=== PATIENT | female | born 1955 | race Two or more races ===

== ENCOUNTER → 2024-06-21 | Outpatient (CLI) | payer MEDICAID, SELFPAY ==
--- NOTE | 2024-06-21 11:30 | XR_ITS ---
Examination: Ultrasound soft tissue upper back TECHNIQUE: By resolution grayscale sonographic images soft tissue upper right back Exam date and time: June 21, 2024 1126 hours INDICATIONS: Palpable lump upper right back beginning 2 months ago FINDINGS: Hyperechoic mass in the soft tissue upper right back at the area concern 4.3 x 1.0 x 3.7 cm IMPRESSION: Probable lipoma in the soft tissue upper right back at the area concern, 3-6 month follow-up ultrasound soft tissue recommended
== END | disposition home or self-care (01) ==
PROVIDERS: PCP Physician Assistant; Referring Provider Physician Assistant; Visit Provider Physician Assistant
DX: R22.9 Localized swelling, mass and lump, unspecified (principal)
CPT/HCPCS: 76604

== ENCOUNTER 2024-10-01 13:19 | Emergency (ER) | payer MEDICAID, SELFPAY ==
[2024-10-01] VITALS (7 sets, daily range): BP systolic 120–163; BP diastolic 75–98; PULSE 88–115; RESP 14–98; TEMP 37.3–38.8; O2SAT 96–99; BMI 23.5
--- NOTE | 2024-10-01 13:39 | EKG_ITS ---
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
--- NOTE | 2024-10-01 13:40 | XR_ITS ---
Examination: PA chest single view Technique: Upright PA chest single view Exam date and time: October 01, 2024 1351 hrs. Comparison March 13, 2024 Indications: Sepsis protocol, right upper abdominal pain beginning 5 days ago. Findings: Normal heart size No lobar pneumonia or pulmonary edema Moderate osteopenia Impression: No lobar pneumonia identified
--- NOTE | 2024-10-01 13:42 | PD.EDADULT ---
ED General RME/HPI General Chief complaint: Abdominal Pain Stated complaint: PAIN ON ABD RUQ STARTED WEDNESDAY Time Seen by Provider: 10/01/24 13:39 Arrival date/time: 10/01/24 13:19 CC: The right upper quadrant abdominal pain and fever HPI ongoing for the past 4 days worse in the last 24. Similar events years ago and is unable to say who her primary care doctor is denies cough shortness of breath or chest pain states that with deep breathing she elicits the pain in the right upper quadrant denies painful urination bloody urination diarrhea nausea or vomiting. Local pain is 6-8 on a 10 scale, patient noted to be febrile sepsis initiated Related Data Allergies Allergy/AdvReac Type Severity Reaction Status Date / Time ibuprofen Allergy Verified 10/01/24 13:27 Review of Systems Review of Systems Narrative Review of Systems: GEN: + fever, no chills, no weight loss EYES: No discharge, no visual changes, no pain HEENT: No ear pain, no congestion, no sore throat PULM: No shortness of breath, no cough, no congestion CV: No chest pain, no dyspnea on exertion, no palpitations GI: No nausea, no vomiting, no diarrhea, right upper quadrant abdominal pain, no constipation : No frequency, no urgency, no dysuria MUSC/SKEL: No joint pain, no back pain SKIN: No rash PSYCH: No hallucinations, no depression HEME/LYMPH: No easy bleeding or bruising tendencies NEURO: No weakness, no headache Past Medical History Social History SMOKING STATUS: Never smoker ED Exam Narrative Physical exam: [General: Petite but not emaciated, in mild discomfort but not in any acute distress Head normocephalic HEENT: Within acceptable limits Neck is supple nontender Chest equal chest rise nontender to palpation Respiratory: Clear to auscultation no wheezes crackles or rubs CV: Rate rhythm is regular no murmurs rubs or clicks Abdomen is flat, mild right upper quadrant tenderness with palpation no reflexive guarding no rebound tenderness no epigastric or left upper quadrant and no lower quadrant pain with palpation. Back: No CVA tenderness no spinous process tenderness from cervical spine thoracic and lumbar spine Skin: Intact no petechiae rash induration ulceration or crepitus Extremities: Moving all extremity against resistance cap refill less than 2 seconds neurosensory intact Neuro: Awake alert oriented x3 Glascow coma 15 no focal deficits] Course Quality Measures none Orders Category Date Time Status Bedside COVID-19 Antigen Test NOW Care 10/01/24 13:39 Active Bedside Influenza A&B Antigen Test NOW Care 10/01/24 13:40 Completed Manager Medical Device STAT Care 10/01/24 13:39 Active Continuous Pulse Oximetry STAT Care 10/01/24 13:39 Completed EKG (ED ONLY) *Do not use* NOW Care 10/01/24 13:39 Completed In and Out Catheter X1PRN Care 10/01/24 13:39 Active Insert IV NOW Care 10/01/24 13:39 Active NPO STAT Care 10/01/24 13:39 Active Strict Intake and Output Routine Care 10/01/24 13:[address] abdomen pelvis wo con Stat Exams 10/01/24 16:23 Completed EKG (ED Only) Stat Exams 10/01/24 13:39 Draft XR chest 1V SEPSIS PROTOCOL Stat Exams 10/01/24 13:40 Taken B-Type Natriuretic Peptide Stat Lab 10/01/24 13:50 Completed Blood Culture (Lab) Stat Lab 10/01/24 13:50 Received CBC Stat Lab 10/01/24 13:50 Completed Comprehensive Metabolic Panel Stat Lab 10/01/24 13:50 Completed LDH (Lactate Dehydrogenase) Stat Lab 10/01/24 13:50 Completed Lactate (Lactic Acid) Stat Lab 10/01/24 13:50 Completed Lipase Stat Lab 10/01/24 13:50 Completed Lipid Panel Stat Lab 10/01/24 13:50 Completed Magnesium Stat Lab 10/01/24 13:50 Completed Partial Thromboplastin Time Stat Lab 10/01/24 13:50 Completed Phosphorous Stat Lab 10/01/24 13:50 Completed Procalcitonin Stat Lab 10/01/24 13:50 Completed Prothrombin Time with INR Stat Lab 10/01/24 13:50 Completed Troponin I Stat Lab 10/01/24 13:50 Completed Urinalysis Stat Lab 10/01/24 14:39 Completed Urine Culture Stat Lab 10/01/24 14:39 Received Acetaminophen Tab [Tylenol Tab] Med 10/01/24 16:24 Discontinued 650 mg PO X1 ONE Morphine Inj Med 10/01/24 16:24 Discontinued 4 mg IVP X1 ONE Ondansetron Inj [Zofran Inj] Med 10/01/24 16:24 Discontinued 4 mg IV X1 ONE Oxygen Delivery NOW RT 10/01/24 13:39 Active Vital Signs Vital signs: Vital Signs Temperature 100.5 F H 10/01/24 13:32 Pulse Rate 115 H 10/01/24 13:32 Respiratory Rate 20 10/01/24 13:32 Blood Pressure 137/92 H 10/01/24 13:32 Pulse Oximetry (%) 96 10/01/24 13:32 Oxygen Delivery Method Room Air 10/01/24 13:32 [facility] Patient data External records reviewed:: [facility] previous records Clinical information provided by:: patient and family Social determinants that could affect healthcare access:: none Patient has the following chronic illnesses:: Review the medical record show no prior visits to this facility. How is presenting disease/condition affected by chronic disease/condition?: uneffected by Evaluation data The following diagnostics were reviewed and interpreted by me:: lab results, radiology exam(s) and EKG tracing(s) Lab and/or radiology exams considered but not ordered:: CBC shows a mild leukocytosis of 15.9 no anemia thrombocytopenia Coags within acceptable limits Chemistry shows sodium 135 no other significant electrolyte imbalances no renal impairment total bilirubin at 2.99 no transaminitis. Lactic acid of 1.9 Troponin is negative Troponin BNP is negative Procalcitonin is negative CT of the abdomen shows the patient has no gallbladder, no CBD dilatation no other acute finding requires emergent or immediate intervention. Interpretation Summary: Patient has no acute finding other than elevated T. bili and fever. I suspect the patient has a virus however I do not know if the T. bili elevation is chronic or not as I have no prior laboratory results to compare to. Patient will be now be discharged home to follow-up with primary care provider daughter at bedside was advised if there is worsening of symptoms return the emergency room immediately for further evaluation. Medications Medications considered but not ordered:: None Medication administrations:: Medication Administration History Discontinued Medications Acetaminophen (Acetaminophen 325 Mg Tablet) 650 mg PO X1 ONE Stop: 10/01/24 16:25 Last Admin: 10/01/24 16:33 Dose: 650 mg Documented By: TM Morphine Sulfate (Morphine Sulf Inj 10 Mg/Ml Vial) 4 mg IVP X1 ONE Stop: 10/01/24 16:25 Last Admin: 10/01/24 16:34 Dose: 4 mg Documented By: TM Ondansetron HCl (Ondansetron Inj 2 Mg/Ml Inj 2 Ml) 4 mg IV X1 ONE; Protocol Stop: 10/01/24 16:25 Last Admin: 10/01/24 16:34 Dose: 4 mg Documented By: TM None Consultations Consultation(s) initiated? (list below): No Diagnosis Differential Diagnosis ED Complaint MDM: Gastritis choledocholithiasis viral syndrome Most likely diagnosis given after review of the tests above:: Viral syndrome fever Admission Indicated Admission indicated?: not indicated Explain why admission is indicated or not indicated:: Stable Admission Request Was there a request for admission?: No Disposition Plan Disposition Plan: Discharge Discharge Attestation Discharge Attestation: The patient and all family members were given an opportunity to ask questions and understood the discharge instructions. Discharge instructions specifically effects, indications for sooner follow up or return to the emergency department, and the expected course of current diagnosis. Patient condition: Stable Medical Decision Making Differential Diagnosis Differential Diagnosis: Gastritis choledocholithiasis viral syndrome Lab Data 10/01/24 13:50 10/01/24 13:50 Labs: Lab Results 10/01/24 10/01/24 Range/Units 13:50 14:39 WBC 15.9 H (3.6-11.0) Thou/mm3 RBC 4.54 (4.00-5.20) Miln/mm3 Hgb 13.6 (12.0-16.0) g/dL Hct 41.0 (36.0-46.0) % MCV 90 (80-100) fL MCH 30.0 (25.0-35.0) pg MCHC 33.2 (31.0-37.0) g/dl RDW Std Deviation 42.6 (36.4-46.3) fL Plt Count 323 (140-440) Thou/mm3 Neut % (Auto) 75 (37-80) % Lymph % (Auto) 15 (10-50) % [place] % (Auto) 9 (0-12) % Eos % (Auto) 0 (0-10) % Baso % (Auto) 0 (0-2.5) % Neut # (Auto) 11.9 H (1.8-7.7) Thou/mm3 Lymph # (Auto) 2.5 (1.0-4.8) Thou/mm3 [place] # (Auto) 1.4 H (0.0-0.8) Thou/mm3 Eos # (Auto) 0.0 (0.0-0.5) Thou/mm3 Baso # (Auto) 0.1 (0.0-0.2) Thou/mm3 Immature Gran # (Auto) 0.06 H (0.00-0.00) Thou/mm3 Absolute Nucleated RBC 0.00 (0.00-0.00) Thou/mm3 Immature Gran % 0 (0-0) % Nucleated RBC % 0 (0) /100 WBC PT 11.6 (9.0-12.2) Seconds INR 1.1 (0.9-1.3) APTT 29.0 (22.0-36.0) Seconds Sodium 135 L (136-145) mMol/L Potassium 4.2 (3.4-5.1) mMol/L Chloride 100 (98-107) mMol/L Carbon Dioxide 25.3 (20.0-31.0) mMol/L Anion Gap 10 (7-16) BUN 19 (9-23) mg/dL Creatinine 0.9 (0.6-1.3) mg/dL Estim Creat Clear Calc 42.6 L (>60) mL/min eGFR > 60 (60 - ) See Note BUN/Creatinine Ratio 21 H (12-20) Ratio Glucose 112 H (74-106) mg/dL Calculated Osmolality 273 L (275-295) Lactic Acid 1.9 (0.4-2.0) mMol/L Calcium 10.5 (8.3-10.6) mg/dL Corrected Calcium 10.5 H (8.5-10.1) mg/dL Phosphorus 3.6 (2.4-5.1) mg/dL Magnesium 2.2 (1.6-2.6) mg/dL Total Bilirubin 2.9 H (0.3-1.2) mg/dL AST 22 (0-34) U/L ALT 18 (10-49) U/L Alkaline Phosphatase 82 (46-116) U/L Lactate Dehydrogenase 167 (120-246) U/L Troponin I < 0.020 (0.0-0.045) ng/mL B-Natriuretic Peptide < 20 (0-100) pg/mL Total Protein 8.5 H (5.7-8.2) gm/dL Albumin 5.1 H (3.4-4.8) gm/dL Globulin 3.4 (2.3-3.5) gm/dL Albumin/Globulin Ratio 1.5 (1.2-2.2) Triglycerides 91 (30-150) mg/dL Cholesterol 157 (132-200) mg/dL LDL Cholesterol, Calc 81 (0-130) mg/dL HDL Cholesterol 58 (40-60) mg/dL Cholesterol/HDL Ratio 2.7 L (3.7-5.6) RATIO Lipase 27 (12-53) U/L Procalcitonin 0.28 (0.0-0.49) ng/ml Ur Collection Type Clean Catch Urine Color Yellow (Lt Yel-Yel) Urine Clarity Turbid A (Clear/Hazy) Urine pH 6.0 (5.0-7.0) Ur Specific [place] 1.030 (1.001-1.035) Urine Protein 2+ A (Neg - Trace) Urine Glucose (UA) Negative (Negative) Urine Ketones 2+ A (Negative) Urine Blood Negative (Negative) Urine Nitrite Negative (Negative) Urine Bilirubin Negative (Negative) Urine Urobilinogen (Auto) 8.0 (0.0-1.0) mg/dL Ur Leukocyte Esterase Positive (Negative) Urine RBC 11 H (0-3) /hpf Urine WBC 12 H (0-5) /hpf Ur Squamous Epith Cells 4 (0-5) /hpf Urine Bacteria Rare (None) Hyaline Casts < 1 (0-1) /hpf Discharge Plan Plan Patient Disposition: HOME (Self Care) Patient condition on transfer: Stable Prescriptions/Referrals Referrals: Christofer rBiggs MD [Physician] - In 1 week No Primary/Family,Physician [Primary Care Provider] - In 1 week Problem List Clinical Impression: Abdominal pain, Fever Patient/Caregiver Discharge Instructions Other Activity Instructions:: Give Tylenol for pain. If there is a worsening of symptoms return the emergency room for reevaluation. Education Materials: Abdominal Pain Additional Instructions: Take the medications as prescribed if there is a worsening of symptoms in spite of the medications return the emergency room for reevaluation otherwise follow-up with your primary care provider. Print Language: Upper Sorbian Stand Alone Forms: Sharyn Award Info., Work/School Release, Patient Portal Info Letter PITER/SOPHIE Supervising Physician PITER/SOPHIE Supervising Physician: Brett Dickson ENP
[2024-10-01 14:05] LABS: Lactate (Lactic Acid) 1.9 mMol/L (0.4-2.0)
[2024-10-01 14:06] LABS: Basophils # (Auto) 0.1 Thou/mm3 (0.0-0.2); Basophils % (Auto) 0 % (0-2.5); Eosinophils % (Auto) 0 % (0-10); Hemoglobin 13.6 g/dL (12.0-16.0); Immature Granulocytes % (Auto) 0 % (0-0); Immature Granulocytes Auto 0.06 Thou/mm3 (0.00-0.00); Lymphocytes # (Auto) 2.5 Thou/mm3 (1.0-4.8); Lymphocytes % (Auto) 15 % (10-50); Mean Corpuscular HGB Conc 33.2 g/dl (31.0-37.0); Mean Corpuscular Volume 90 fL (80-100); Monocytes # (Auto) 1.4 Thou/mm3 (0.0-0.8); Monocytes % (Auto) 9 % (0-12); Neutrophils # (Auto) 11.9 Thou/mm3 (1.8-7.7); Neutrophils % (Auto) 75 % (37-80); Nucleated Red Blood Cell % 0 /100 WBC (0); Platelet Count 323 Thou/mm3 (140-440); RDW Standard Deviation 42.6 fL (36.4-46.3); Red Blood Count 4.54 Miln/mm3 (4.00-5.20); White Blood Count 15.9 Thou/mm3 (3.6-11.0)
[2024-10-01 14:25] LABS: INR 1.1 (0.9-1.3); Prothrombin Time 11.6 Seconds (9.0-12.2)
[2024-10-01 14:28] LABS: B-Type Natriuretic Peptide < 20 pg/mL (0-100)
[2024-10-01 14:36] LABS: Alanine Aminotransferase 18 U/L (10-49); Albumin, Serum 5.1 gm/dL (3.4-4.8); Albumin/Globulin Ratio 1.5 (1.2-2.2); Alkaline Phosphatase 82 U/L (46-116); Anion Gap 10 (7-16); Aspartate Amino Transferase 22 U/L (0-34); BUN/Creatinine Ratio 21 Ratio (12-20); Bilirubin,Total 2.9 mg/dL (0.3-1.2); Blood Urea Nitrogen 19 mg/dL (9-23); Calcium 10.5 mg/dL (8.3-10.6); Calcium (Corrected) 10.5 mg/dL (8.5-10.1); Carbon Dioxide 25.3 mMol/L (20.0-31.0); Chloride 100 mMol/L (98-107); Creatinine (Component) 0.9 mg/dL (0.6-1.3); Estimated Creatinine Clearance 42.6 mL/min (>60); Globulin 3.4 gm/dL (2.3-3.5); Glucose 112 mg/dL (74-106); LDH (Lactate Dehydrogenase) 167 U/L (120-246); Lipase 27 U/L (12-53); Magnesium 2.2 mg/dL (1.6-2.6); Osmolality,Calculated 273 (275-295); Phosphorous 3.6 mg/dL (2.4-5.1); Potassium 4.2 mMol/L (3.4-5.1); Procalcitonin 0.28 ng/ml (0.0-0.49); Sodium 135 mMol/L (136-145); Total Protein 8.5 gm/dL (5.7-8.2); Troponin I < 0.020 ng/mL (0.0-0.045); eGFR > 60 See Note
[2024-10-01 14:55] LABS: Collection Type, Urine Clean Catch
[2024-10-01 15:07] LABS: Bacteria,Urine Rare; Bilirubin,Urine Negative (Negative); Blood,Urine Negative (Negative); Clarity,Urine Turbid (Clear/Hazy); Color,Urine Yellow (Lt Yel-Yel); Glucose, Urine Negative (Negative); Hyaline Casts,Urine < 1 /hpf (0-1); Ketones,Urine 2+ (Negative); Leukocyte Esterase,Urine Positive (Negative); Nitrite,Urine Negative (Negative); Protein,Urine 2+ (Neg - Trace); RBC,Urine 11 /hpf (0-3); Squamous Epithelial Cell,Urine 4 /hpf (0-5); WBC,Urine 12 /hpf (0-5)
--- NOTE | 2024-10-01 16:00 | PC.NURSE ---
PT COMES FROM HOME W/ABDOMINAL PAIN THAT SHE HAS HAD FOR A FEW DAYS THAT IS GETTING WORSE. SHE THOUGHT IT WAS HER SCIATICA BUT NOW GETS IN EXTREME PAIN ANYTIME SHE MOVES. PT CONNECTED TO TELE, FAMILY AT BEDSIDE ATTENTIVE TO PT, CALL [facility] IN REACH.
--- NOTE | 2024-10-01 16:23 | XR_ITS ---
Examination: CT abdomen and pelvis without contrast. Coronal 3-D reconstructions. Sagittal 2-D reconstructions. Date and time of exam:October 01, 2024 1647 hrs. Indications: Right upper abdominal pain beginning 5 days ago CTDI: vol (mGy): 01/19/2021 DLP: (mGycm): 279 Technique: Axial images of the abdomen have been obtained, 3 mm slice thickness Intravenous contrast material has not been administered. Low dose protocols were performed. One or more of the following dose reduction techniques were used; automated exposure control, adjustment of the mA and/or KV according to patient size, use of iterative reconstruction technique. Findings: No focal liver or splenic lesions Absent gallbladder No extra hepatic biliary tract dilatation No pancreatic or adrenal mass No renal or ureteral calculi No bowel obstruction Normal appendix Scattered colonic diverticulosis, no diverticulitis Retroverted uterus with midbody 25 mm uterine mass Bladder intact Grade 1 anterolisthesis L5 on S1 with advanced degenerative disc disease L5-S1 Impression: Absent gallbladder, no extrahepatic biliary tract dilatation Given the patient's presentation consider hepatobiliary sonography follow-up Negative for pancreatitis Normal appendix Scattered colonic diverticulosis, no diverticulitis Recommend pelvic sonography to confirm uterine body mass, as clinically warranted
[2024-10-01] MEDS: ACETAMINOPHEN 325 MG TABLET 650 MG PO (16:33)
[2024-10-01] MEDS: MORPHINE SULF INJ 10 MG/ML VIAL 4 MG IVP (16:34)
[2024-10-01] MEDS: ONDANSETRON INJ 2 MG/ML INJ 2 ML 4 MG IV (16:34)
--- NOTE | 2024-10-01 16:41 | PC.NURSE ---
TO CT AT THIS TIME. PT MEDICATED OR PAIN AND TEMP PRIOR.
[2024-10-01 16:53] LABS: Cardiac Risk Estimate 2.7 RATIO (3.7-5.6); Cholesterol 157 mg/dL (132-200); HDL Cholesterol 58 mg/dL (40-60); LDL Cholesterol,Calculated 81 mg/dL (0-130); Triglycerides 91 mg/dL (30-150)
== END 2024-10-01 18:05 | disposition home or self-care (01) ==
PROVIDERS: Registered Nurse General Practice; Emergency Provider Emergency Medicine
DX: R10.11 Right upper quadrant pain (principal); R50.9 Fever, unspecified; R00.0 Tachycardia, unspecified; D72.829 Elevated white blood cell count, unspecified
CPT/HCPCS: 36415; 71045; 74176; 80053; 80061; 81001; 83605; 83615; 83690; 83735; 83880; 84100; 84145; 84484; 85025; 85610; 85730; 87040; 87086; 87400; 87811; 93005; 96374; 96375; 99284; J2270; J2405; A9270

== ENCOUNTER → 2025-02-27 | Outpatient (CLI) | payer MEDICAID, SELFPAY ==
--- NOTE | 2025-02-27 10:15 | XR_ITS ---
Examination: Ultrasound soft tissue extremity upper back TECHNIQUE: Grayscale sonographic images soft tissue right upper back Date and time: February 27, 2025 1029 hours INDICATIONS: Palpable lump right upper back noticed beginning 8 months ago. FINDINGS: 3.6 x 1.5 x 3.3 cm hyperechoic mass in the soft tissue at the area concern right upper back most consistent with lipoma IMPRESSION: Lipomatous mass at the area concern in the right upper back, recommend 3-6 month follow-up ultrasound examination
== END | disposition home or self-care (01) ==
PROVIDERS: PCP Physician Assistant; Referring Provider Physician Assistant; Visit Provider Physician Assistant
DX: R22.9 Localized swelling, mass and lump, unspecified (principal)
CPT/HCPCS: 76604

== ENCOUNTER 2025-07-24 09:30 | Day surgery (SDC) | payer MEDICAID, SELFPAY ==
--- NOTE | 2025-07-19 06:55 | EKG_ITS ---
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
[2025-07-19 09:42] VITALS: BMI 25.7
[2025-07-19 11:07] LABS: Basophils # (Auto) 0.1 Thou/mm3 (0.0-0.2); Basophils % (Auto) 1 % (0-2.5); Eosinophils # (Auto) 0.3 Thou/mm3 (0.0-0.5); Eosinophils % (Auto) 5 % (0-10); Hematocrit 44.6 % (36.0-46.0); Hemoglobin 14.4 g/dL (12.0-16.0); Immature Granulocytes Auto 0.02 Thou/mm3 (0.00-0.00); Lymphocytes # (Auto) 3.2 Thou/mm3 (1.0-4.8); Lymphocytes % (Auto) 43 % (10-50); Mean Corpuscular HGB Conc 32.3 g/dl (31.0-37.0); Mean Corpuscular Hemoglobin 29.6 pg (25.0-35.0); Mean Corpuscular Volume 92 fL (80-100); Monocytes # (Auto) 0.6 Thou/mm3 (0.0-0.8); Monocytes % (Auto) 8 % (0-12); Neutrophils # (Auto) 3.2 Thou/mm3 (1.8-7.7); Neutrophils % (Auto) 43 % (37-80); Nucleated Red Blood Cell # 0.00 Thou/mm3 (0.00-0.00); Nucleated Red Blood Cell % 0 /100 WBC (0); Platelet Count 307 Thou/mm3 (140-440); RDW Standard Deviation 44.9 fL (36.4-46.3); Red Blood Count 4.87 Miln/mm3 (4.00-5.20); White Blood Count 7.3 Thou/mm3 (3.6-11.0)
[2025-07-19 11:14] LABS: INR 1.0 (0.9-1.3); Partial Thromboplastin Time 27.0 Seconds (22.0-36.0); Prothrombin Time 10.3 Seconds (9.0-12.2)
[2025-07-19 11:28] LABS: Alanine Aminotransferase 16 U/L (10-49); Albumin, Serum 4.8 gm/dL (3.4-4.8); Albumin/Globulin Ratio 1.5 (1.2-2.2); Alkaline Phosphatase 74 U/L (46-116); Anion Gap 10 (7-16); Aspartate Amino Transferase 20 U/L (0-34); BUN/Creatinine Ratio 17 Ratio (12-20); Bilirubin,Total 1.0 mg/dL (0.3-1.2); Blood Urea Nitrogen 12 mg/dL (9-23); Calcium 10.0 mg/dL (8.3-10.6); Calcium (Corrected) 10.0 mg/dL (8.5-10.1); Carbon Dioxide 27.8 mMol/L (20.0-31.0); Chloride 106 mMol/L (98-107); Creatinine (Component) 0.7 mg/dL (0.6-1.3); Estimated Creatinine Clearance 57.0 mL/min (>60); Globulin 3.2 gm/dL (2.3-3.5); Glucose 101 mg/dL (74-106); Osmolality,Calculated 286 (275-295); Potassium 3.6 mMol/L (3.4-5.1); Sodium 144 mMol/L (136-145); Total Protein 8.0 gm/dL (5.7-8.2); eGFR > 60 See Note
--- NOTE | 2025-07-23 15:06 | SUR.PREOP ---
Pt's son Axel notifed to bring pt at 0930 tomorrow for surgery.
[2025-07-24] VITALS (9 sets, daily range): BP systolic 137–171; BP diastolic 70–86; PULSE 59–101; RESP 13–20; TEMP 36.3–37.2; O2SAT 95–99; BMI 25.1
[2025-07-24] MEDS: RINGERS LACTATED 1000 ML 1,000 ML 20 ML IV (10:30)
--- NOTE | 2025-07-24 12:50 | SUR.PHASEI ---
1250 Patient arrived to recovery, resting comfortably in [facility], drowsy and able to respond to verbal prompting, breathing unlabored, vital signs stable, denies pain and nausea, dressing intact to upper right back, sutures, adaptic, gauze, medipore tape, no bleeding noted, report received from Dr. Kimbrough and Arely CARVALHO
--- NOTE | 2025-07-24 13:02 | ESOP_ITS ---
Date of Procedure 07/24/25 Pre Op Diagnosis Soft tissue mass right side of the back Post Op Diagnosis Same below the muscle possibly a lipoma Procedure Excision of the soft tissue mass located underneath the muscle on the right side of the back Findings Patient is found to have a lobulated lipoma which is located below the muscle probably the latissimus dorsi. Procedure Description After the patient was brought to the operating room she was kept on left lateral position after anesthesia was given with LMA. Right chest was washed with C hloraPrep solution and draped in a sterile manner. Timeout was performed. Then injected 1% Xylocaine and made incision over the soft tissue mass and dissected the subcutaneous tissue. The mass was located below the muscle and therefore the muscle was split open and the mass which was nicely encircled was removed. Bleeding points were controlled with cautery and I used a 3-0 chromic to approximate the muscles after the mass was removed. Then the subcutaneous tissue was closed with 3-0 chromic and the skin by 4-0 Monocryl sutures. Dressing was applied with Adaptic and 4 x 4 gauze and patient tolerated the procedure well. Anesthesia other (General LMA) Pathology / specimen Other (Mass posterior chest wall) Estimated Blood Loss 20 Surgeon Erick Wall MD Surgical Staff Operation Date: 07/24/25 11:30 Case Staff Anesthesiologist: Eduardo Kimbrough RNsteam setter: Katherine Dillard
--- NOTE | 2025-07-24 13:29 | SUR.PHASEII ---
patient tolerated jello
--- NOTE | 2025-07-24 14:17 | SUR.PHASEII ---
1417 Patient meets discharge criteria from recovery, awake and alert, breathing unlabored, vital signs stable, denies pain and nausea, able to dress herself into her clothing, discharge instructions given to patient and patients daughter with the assistance of the hospital typesetters printer Domi, patients daughter signed discharge instructions. Patient given all her belongings prior to discharge, transported via wheelchair and left in a private vehicle.
== END 2025-07-24 14:17 | disposition home or self-care (01) ==
PROVIDERS: PCP Physician Assistant; Referring Provider Surgery; Visit Provider Surgery
PROC: (CPT 21932; principal; 2025-07-24 11:15)
DX: D17.9 Benign lipomatous neoplasm, unspecified (principal); Z01.810 Encounter for preprocedural cardiovascular examination
CPT/HCPCS: 21932; 36415; 80053; 85025; 85610; 85730; 93005; A4217; A4649; J1100; J2704; J2765; J3010; J3490; J7120